=== PATIENT | female | born 1960 | race Caucasian/White ===

== ENCOUNTER → 2018-04-10 | Day surgery (SDC) | payer BC ==
[~2018-04-10] MED LIST: LIDOCAINE HCL 1% MPF 30 SOL ONE; PROPOFOL 500 MG/50 ML EMU IV ONE
[2018-04-10 12:54] VITALS: BP 132/83; PULSE 59; RESP 18; TEMP 97.4; O2SAT 99
== END | disposition home or self-care (01) ==
LOC: SURG 09:58
PROVIDERS: ATTEND Surgery
DX: R19.5 Other fecal abnormalities (principal); D12.2 Benign neoplasm of ascending colon; K63.5 Polyp of colon
CPT/HCPCS: 99001; J2001; J2704